=== PATIENT | male | born 1995 | race Caucasian/White ===

== ENCOUNTER 2020-11-27 19:18 | Emergency (ER) | payer OTHER, SELFPAY ==
[2020-11-27 19:31] VITALS: BP 148/61; PULSE 97; RESP 14; TEMP 36.9; O2SAT 99
[2020-11-27 19:38] VITALS: BP 148/61; PULSE 97; RESP 14; TEMP 36.9; O2SAT 99
--- NOTE | 2020-11-27 19:46 | ED.GENADULT ---
HPI - General Adult General Chief complaint: Ear Stated complaint: Nausea, Ear Pain Time Seen by Provider: 11/27/20 19:35 Source: patient and RN notes reviewed Mode of arrival: ambulatory Limitations: no limitations History of Present Illness HPI narrative: Patient presents today complaining of right ear pain x3 weeks with right upper tooth pain x1 week. Patient was in a telehealth visit for his right ear pain and started on Augmentin on 11/21. He did not start the Augmentin until 11/23/2020. States his ear pain and tooth pain has not improved. Denies fever, congestion, rhinorrhea, sore throat. He has been taking ibuprofen without relief and currently rates pain 09/22. States he is nauseated related to the Augmentin use. MD complaint: Dental pain, right ear pain Related Data Home Medications Medication Instructions Recorded Confirmed amoxicillin-pot clavulanate 1 tablet PO Q12H 11/27/20 11/27/20 omeprazole 40 mg PO DAILY 11/27/20 11/27/20 Allergies Allergy/AdvReac Type Severity Reaction Status Date / Time acetaminophen Allergy Intermediate Swelling Verified 11/27/20 19:28 Review of Systems Review of Systems: CONSTITUTIONAL: Denies body aches, fever, chills, or sweats. EYES: Denies visual changes, redness, or discharge. ENT: Denies rhinorrhea, congestion, sore throat. + Right ear pain, right upper dental pain CARDIOVASCULAR: Denies chest pain, palpitations, or edema. RESPIRATORY: Denies cough or dyspnea. GASTROINTESTINAL: Denies abdominal pain, nausea, vomiting, or diarrhea. GENITOURINARY: Denies dysuria or hematuria. SKIN: Denies rash, itching, or wounds. MUSCULOSKELETAL: Denies back pain, joint pain, or myalgia. NEUROLOGIC: Denies headache, numbness, tingling, or weakness. PSYCH: Denies depression or anxiety. [facility] Past Medical History Medical History (Updated 11/27/20 @ 19:52 by Lu Larsen, [employer], ) GERD (gastroesophageal reflux disease) Comments At time of signature, I have reviewed and agree with nursing past medical, surgical, social and family history unless otherwise noted. Please see nursing chart for further information. There is no relevant family history pertinent to the presenting complaint Exam Narrative: GENERAL: Well-appearing, well-nourished, and in no acute distress. HEAD: Normocephalic, atraumatic. EYES: EOMI. No redness or drainage. Conjunctivae normal. ENT: Mucous membranes pink and moist. Nares clear. No rhinorrhea. TMs normal bilaterally. Throat normal. Uvula midline. Tooth #4 is broken off and a posterior piece is missing. Tender to percussion. Gumline is normal with no obvious periapical abscess. NECK: Normal AROM. Supple. No lymphadenopathy. CHEST: No respiratory distress. EXTREMITIES: Normal range of motion. No edema. SKIN: Warm, dry, no rash. Capillary refill normal. Normal skin turgor. NEURO: No focal deficits. Alert and oriented x3. Gait steady. PSYCH: Normal affect. No signs of depression or anxiety. Course Course Emergency Course: Patient's ear pain is likely referred pain from his fracture tooth. Tooth is likely painful due to an exposed nerve. Discussed follow-up dentist as soon as possible. Patient states he was having trouble with his dental insurance this week and will try to follow up next week. Vital Signs Vital signs: Vital Signs Temperature 98.5 F 11/27/20 19:31 Pulse Rate 97 11/27/20 19:31 Respiratory Rate 14 11/27/20 19:31 Blood Pressure 148/61 H 11/27/20 19:31 Pulse Oximetry 99 11/27/20 19:31 Temperature 98.5 F 11/27/20 19:38 Pulse Rate 97 11/27/20 19:38 Respiratory Rate 14 11/27/20 19:38 Blood Pressure 148/61 H 11/27/20 19:38 Pulse Oximetry 99 11/27/20 19:38 Reviewed. Pt has been instructed to follow up with his PCP regarding his elevated blood pressure today. Medical Decision Making Differential Diagnosis Differential Diagnosis: AOM, otitis externa, ruptured TM, periapical abscess, tooth fracture
== END 2020-11-27 19:54 | disposition home or self-care (01) ==
PROVIDERS: Emergency Provider Nurse Practitioner; PCP Family Medicine Sports Medicine
DX: S02.5XXA Fracture of tooth (traumatic), initial encounter for closed fracture (principal); X58.XXXA Exposure to other specified factors, initial encounter; K21.9 Gastro-esophageal reflux disease without esophagitis
CPT/HCPCS: 99213; G0463

== ENCOUNTER 2021-04-11 23:45 | Emergency (ER) | payer OTHER, SELFPAY ==
--- NOTE | ~2021-04-11 | XR_ITS ---
EXAMINATION: XR chest 2V 04/12/2021 00:21 INDICATION: Chest pain PROCEDURE: 2 view chest COMPARISON: No prior studies for comparison. FINDINGS: The lungs are clear. The cardiomediastinal silhouette is within normal limits. There are no pleural effusions. There is no pneumothorax suspected. IMPRESSION: 1: NO ACUTE CARDIOPULMONARY DISEASE. Reviewed, dictated and finalized at location A. [employer] MACHINE OPERATOR
[2021-04-11 23:48] VITALS: PULSE 95; RESP 18; O2SAT 100
[2021-04-11 23:54] VITALS: PULSE 85
--- NOTE | 2021-04-12 00:05 | ECG_ITS ---
Measurements Intervals [place] Rate: 88 P: 72 [place]: 159 QRS: 81 QRSD: 92 T: 56 QT: 316 QTc: 384 Interpretive Statements SINUS RHYTHM WITH SINUS ARRHYTHMIA MINIMAL Q WAVES- ANTEROLAT/INF LEADS BORDERLINE ECG Electronically Signed On 04-12-2021 6:26:34 CIRCULAR CLERK by Fazal Pena D.O.
--- NOTE | 2021-04-12 00:06 | ED.CHESTPAIN ---
HPI - Chest Pain General Chief Complaint: Chest Pain Stated Complaint: Chest pain, n/v Time Seen by Provider: 04/11/21 23:56 Source: patient Mode of arrival: ambulatory Limitations: no limitations History of Present Illness HPI narrative: This is a 25 year old male who presents for evaluation of left anterior chest pain. This pain started 7 days ago on monday night. He describes left anterior chest pain that radiates to left shoulder, and his pain has been constant. He admits to drinking 8 beers on Monday but denies any other possible causes of his pain. He also developed nausea, vomiting, and weakness on and Monday night. His nausea and vomiting have resolved. He also denies fever, chills, cough, shortness of breath or abdominal pain. He states his pain has not gotten worse, and he is unsure of any exacerbating factors. He took a rapid covid test yesterday and it was negative.He came to ER today because his chest pain has been constant. Related Data Home Medications Medication Instructions Recorded Confirmed omeprazole 40 mg PO DAILY 11/27/20 11/27/20 Allergies Allergy/AdvReac Type Severity Reaction Status Date / Time acetaminophen Allergy Intermediate Swelling Verified 04/11/21 23:56 Review of Systems Review of Systems: All systems reviewed & are unremarkable except as noted in HPI and below PMFSH Past Medical History Medical History (Updated 04/12/21 @ 02:49 by Nancy Montes MD) GERD (gastroesophageal reflux disease) Surgical History Surgical History (Updated 04/12/21 @ 00:10 by Nancy Montes MD) No pertinent past surgical history Social History Social History (Updated 04/12/21 @ 00:10 by Nancy Montes MD) Smoking status: Current every day smoker Additional smoking assessment comments: smokes 1 pack per week Alcohol intake: current Exam Const: General: no acute distress and alert Orientation/consciousness: patient oriented x3 Eyes: EOM: EOMs intact bilaterally Resp: Effort & Inspection: normal respiratory effort and no retractions Auscultation: clear to auscultation bilaterally Cardio: Rate: regular rate Rhythm: regular rhythm Heart sounds: no murmurs GI: GI Palp: Yes Soft to palpation, No Tenderness to palpation present (GI) and No Guarding due to palpation present (GI) Auscultation: normal bowel sounds Skin: General skin exam: normal color Rashes: no rashes Neuro: General: patient oriented x3, moves all extremities and CN's II-XI intact bilaterally Extrem: General: normal to inspection Psych: Mental Status: mental status grossly normal Affect: normal affect Course Reevaluation(s) Reevaluation #1: PAtient reports pain has improved. I discussed with patient no significant abnormalities found. potassium is mildly decreased. Date: 04/12/21 Time: 02:47 Vital Signs Vital signs: Vital Signs Pulse Rate 95 04/11/21 23:48 Respiratory Rate 18 04/11/21 23:48 Pulse Oximetry 100 04/11/21 23:48 Pulse Rate 77 04/12/21 03:09 Respiratory Rate 20 04/12/21 03:09 Blood Pressure 114/72 04/12/21 03:09 Pulse Oximetry 100 04/12/21 03:09 MDM - Chest Pain Lab Data Attestation: I reviewed the patient's lab results. Result diagrams: 04/12/21 00:08 04/12/21 00:09 Labs: Lab Results 04/12/21 04/12/21 04/12/21 Range/Units 00:08 00:08 00:09 WBC 8.7 (4.5-10.0) K/mm3 RBC 5.38 (4.6-6.20) M/mm3 Hgb 16.4 (14.0-18.0) g/dL Hct 48.1 (42.0-52.0) % MCV 89.4 (80-100) fl MCH 30.5 (26-34) pg MCHC 34.1 (32-36) g/dl RDW 12.3 (11.5-14.5) % Plt Count 211 (150-375) k/mm3 MPV 10.2 (7.4-10.4) fl Immature Gran % (Auto) 0.3 (0-0.5) % Neut % (Auto) 51.4 (45.5-73.1) % Lymph % (Auto) 33.8 (18.3-44.2) % Wilcox % (Auto) 11.1 H (2.6-8.5) % Eos % (Auto) 2.9 (0-4.4) % Baso % (Auto) 0.5 (0.2-1.2) % Lymph # (Auto) 2.95 (0.9-3.2) K/mm3
[2021-04-12] MEDS: KETOROLAC 30 MG/ML VIAL (*BKC) IV PUSH (00:11)
[2021-04-12] MEDS: PANTOPRAZOLE SODIUM IV 40 MG VIAL IV PUSH (00:11)
[2021-04-12] MEDS: SODIUM CHLORIDE 0.9% IV 1,000 ML 999 ML IV CONT (00:12)
[2021-04-12 00:13] LABS: Basophils Percent Auto 0.5 % (0.2-1.2); Eosinophils Absolute Auto 0.3 K/mm3 (0-0.3); Eosinophils Percent Auto 2.9 % (0-4.4); Hematocrit 48.1 % (42.0-52.0); Hemoglobin 16.4 g/dL (14.0-18.0); Immature Granulocyte Absolute 0.03 K/mm3 (0.00-0.031); Immature Granulocyte Percent A 0.3 % (0-0.5); Lymphocytes Absolute Auto 2.95 K/mm3 (0.9-3.2); Lymphocytes Percent Auto 33.8 % (18.3-44.2); Mean Corpuscular HGB Conc 34.1 g/dl (32-36); Mean Corpuscular Hemoglobin 30.5 pg (26-34); Mean Corpuscular Volume 89.4 fl (80-100); Mean Platelet Volume 10.2 fl (7.4-10.4); Monocytes Percent Auto 11.1 % (2.6-8.5); Neutrophils Absolute Auto 4.5 K/mm3 (1.3-6.7); Neutrophils Percent Auto 51.4 % (45.5-73.1); Platelet Count Result 211 k/mm3 (150-375); Red Blood Count 5.38 M/mm3 (4.6-6.20); Red Cell Distribution Width 12.3 % (11.5-14.5); White Blood Count 8.7 K/mm3 (4.5-10.0)
[2021-04-12 00:24] LABS: Prothrombin Time 12.7 Seconds (11.1-14.7)
[2021-04-12 00:25] LABS: Partial Thromboplastin Time 28.5 SECONDS (22.3-36.8)
[2021-04-12 00:27] LABS: D Dimer 0.38 ug/mL (<0.48)
[2021-04-12 00:27] LABS: Alanine Aminotransferase 19 U/L (4-50); Albumin Level 4.6 g/dL (3.5-5.1); Alkaline Phosphatase 57 U/L (38-126); Anion Gap 9 mmol/L (8-16); Aspartate Amino Transferase 26 U/L (17-59); Bilirubin,Total 0.4 mg/dL (0.2-1.3); Blood Urea Nitrogen 14 mg/dL (9-20); Calcium 8.6 mg/dL (8.4-10.2); Carbon Dioxide 28 mmol/L (22-30); Chloride 104 mmol/L (98-107); Estimated CRCL calculation 107 ml/min; Estimated Glomerular Filt Rate > 60; Glucose 79 mg/dL (65-110); Lipase 155 U/L (23-300); Potassium 3.3 mmol/L (3.4-5.0); Sodium 141 mmol/L (137-145)
[2021-04-12 00:39] LABS: Troponin I < 0.012 ng/mL (0.000-0.034)
[2021-04-12 01:12] VITALS: BP 103/76; PULSE 84; RESP 14; O2SAT 100
[2021-04-12] MEDS: ONDANSETRON INJ 4 MG/2 ML VIAL IV PUSH (02:12)
[2021-04-12 03:09] VITALS: BP 114/72; PULSE 77; RESP 20; O2SAT 100
== END 2021-04-12 03:09 | disposition home or self-care (01) ==
PROVIDERS: Emergency Provider General Practice; PCP Family Medicine Sports Medicine
DX: R07.89 Other chest pain (principal); K21.9 Gastro-esophageal reflux disease without esophagitis; F17.210 Nicotine dependence, cigarettes, uncomplicated; R94.31 Abnormal electrocardiogram [ECG] [EKG]
CPT/HCPCS: 36415; 71046; 80053; 83690; 84484; 85025; 85380; 85610; 85730; 93005; 96361; 96374; 96375; 99284; C9113; J1885; J2405; J7030

== ENCOUNTER 2024-01-18 16:21 | Emergency (ER) | payer SELFPAY ==
--- NOTE | 2024-01-18 16:24 | ED_ITS ---
HPI - Male Genitourinary General Chief complaint: Urogenital-Male Stated complaint: burning while urinating Time Seen by Provider: 01/18/24 16:24 Source: patient Mode of arrival: ambulatory Limitations: no limitations History of Present Illness HPI Narrative: Jeffrey is a 28-year-old male patient presenting to the clinic today with complaints of 2 weeks of burning with urination. He denies any penile discharge. States he got a text 3 days ago from a sexual partner that tested positive for chlamydia. He denies any fevers, body aches, back pain, testicle pain, or lower abdominal pain. Related Data Home Medications Medication Instructions Recorded Confirmed omeprazole 40 mg capsule,delayed 40 mg PO DAILY 11/27/20 01/18/24 release escitalopram oxalate 10 mg tablet 10 mg PO DAILY 01/18/24 01/18/24 Allergies Allergy/AdvReac Type Severity Reaction Status Date / Time acetaminophen Allergy Intermediate Swelling Verified 01/18/24 16:23 Review of Systems Review of Systems: Pertinent positives per HPI. Patient denies any fever, chills, rash, headache, visual changes, dizziness, cough, runny nose, sore throat, shortness of breath, chest pain, palpitations, nausea, vomiting, diarrhea, constipation, abdominal pain, or any urinary issues. PMFSH Past Medical History Medical History GERD (gastroesophageal reflux disease) Surgical History Surgical History No pertinent past surgical history Social History Social History Smoking status: Current every day smoker Additional smoking assessment comments: smokes 1 pack per week Alcohol intake: current Comments At the time of my signature, I reviewed and agree with the nursing past medical, surgical, social, and family history. There is no relevant family history pertinent to the patient complaint. Exam Narrative: General: Well-developed, well nourished, in no apparent distress. Head: Normocephalic, atraumatic. Cardio: Regular rate and rhythm, s1 and s2 normal, no murmur appreciated. Resp: Clear to auscultation bilaterally, no rhonchi, rales, wheezing or rubs. Abdomen: Soft, pliable, bowel sounds present in all quadrants, non-tender to palpation, no organomegly, no CVAT tenderness. : Deferred Course Course Emergency Course: Portions of this record may have been created with voice recognition software. Level of Care: Express Care Visit Vital Signs Vital signs: Vital Signs Temperature 36.6 C 01/18/24 16:32 Pulse Rate 82 01/18/24 16:32 Respiratory Rate 16 01/18/24 16:32 Blood Pressure 137/79 01/18/24 16:32 Pulse Oximetry 100 01/18/24 16:32 Oxygen Delivery Room Air 01/18/24 16:32 Temperature 36.6 C 01/18/24 16:32 Pulse Rate 82 01/18/24 16:32 Respiratory Rate 16 01/18/24 16:32 Blood Pressure 137/79 01/18/24 16:32 Pulse Oximetry 100 01/18/24 16:32 Oxygen Delivery Room Air 01/18/24 16:32 Vital signs reviewed MDM - Male Genitourinary MDM Narrative Medical decision making narrative: At the time of visit patient is resting comfortably on the exam table. Patient appears to be nontoxic. Labs: Urinalysis shows 1+ protein and uro bili but no sign of infection. We will send urine for gonorrhea, chlamydia, and Trichomonas testing Plan: We will cover patient for chlamydia as he has had direct exposure and he is having dysuria. Prescription for doxycycline was sent to the pharmacy. Supportive measures were discussed with the patient and they voiced understanding discharge instructions and agrees to treatment plan. Return precautions reviewed Differential Diagnosis Differential diagnosis: Likely urinary tract infection, priapism, urethritis, epididymitis, prostatitis and other (STI) Discharge Plan Discharge Clinical Impression: Chlamydia contact, Dysuria Patient Disposition: Home, Self-Care Condition: Stable Instructions: Antibiotic Form, Chlamydia (ED), Dysuria (ED) Additional Instructions: Urinalysis shows 1+ protein but no sign of urinary tract infection Will cover you for chlamydia as you have had that exposure Take doxycycline as prescribed We have tested/treated you for STIs in the clinic today. Avoid any sexual activity- includes oral, anal, or vaginal intercourse until you get results back and have completed any additional recommended treatment regimens. We will contact you if testing is positive and make sure your treatment was appropriate for the type of STI. If symptoms worsen after treatment recommend reevaluation with your PCP or Express care. Prescriptions: New doxycycline monohydrate 100 mg capsule 100 mg PO BID 7 Days Qty: 14 0RF No Action omeprazole 40 mg capsule,delayed release(DR/EC) 40 mg PO DAILY escitalopram oxalate 10 mg tablet 10 mg PO DAILY ondansetron 4 mg tablet,disintegrating 4 mg PO Q6H PRN (Reason: nausea and vomiting) Qty: 10 0RF ibuprofen 600 mg tablet 600 mg PO Q6H PRN (Reason: pain) Qty: 14 0RF Follow-up/Referrals: PHYSICIAN,SMOKEHOUSE WORKER [Primary Care Provider] - Time of Disposition: 16:43 Quality NIHSS Nursing Documentation ED NIHSS nursing documentation: reviewed/agree
[2024-01-18 16:32] VITALS: BP 137/79; PULSE 82; RESP 16; TEMP 36.6; O2SAT 100
[2024-01-18 16:49] LABS: EDUAAPPEAR Clear; EDUABILI Negative (Negative); EDUABLOOD Negative (Negative); EDUACOLOR1 Yellow; EDUAGLUCOSE Negative (Negative); EDUAKETONE Negative (Negative); EDUALEUKO Negative (Negative); EDUANITRATE Negative (Negative); EDUAPH 8.5; EDUAPROTEIN 1+ (Negative); EDUASPGRAVITY 1.015
[2024-01-18 21:13] LABS: Trichomonas Vag PCR NOT DETECTED (NOT DETECTE)
[2024-01-18 21:36] LABS: Chlamydia trachomatis NOT DETECTED (NOT DETECTE); Neisseria gonorrhoeae PCR NOT DETECTED (NOT DETECTE)
== END 2024-01-18 16:49 | disposition home or self-care (01) ==
PROVIDERS: Emergency Provider Nurse Practitioner Family
DX: R30.0 Dysuria (principal); Z20.2 Contact with and (suspected) exposure to infections with a predominantly sexual mode of transmission; K21.9 Gastro-esophageal reflux disease without esophagitis; F17.200 Nicotine dependence, unspecified, uncomplicated
CPT/HCPCS: 81003; 87491; 87591; 87661; 99213; G0463

== ENCOUNTER 2024-04-16 12:49 | Emergency (ER) | payer SELFPAY ==
[2024-04-16 12:55] VITALS: BP 124/72; PULSE 97; RESP 16; TEMP 36.9; O2SAT 98
--- NOTE | 2024-04-16 13:18 | ED.URI ---
HPI - URI/Sore Throat General Chief Complaint: Upper Respiratory Infection Stated Complaint: sharp pain w/breath,weight on chest Time Seen by Provider: 04/16/24 13:18 Source: patient, RN notes reviewed and old records reviewed Mode of arrival: ambulatory Limitations: no limitations History of Present Illness HPI Narrative: 28-year-old male presents to the [facility] with a cough, chest discomfort with coughing and deep breathing since Monday, 3 days. Reports that he has also had a fevers high as 102.3. Denies any nausea or vomiting. Has taken Advil called in flu. Reports exposure to influenza B Onset (ago): day(s) (3) Treatments prior to arrival: cold medicine Related Data Home Medications ?Medication ?Instructions ?Recorded ?Confirmed ?Last Taken ?Type escitalopram oxalate 10 mg tablet 10 mg PO DAILY 01/18/24 01/18/24 Unknown History Allergies Allergy/AdvReac Type Severity Reaction Status Date / Time acetaminophen Allergy Intermediate Swelling Verified 04/16/24 12:52 Review of Systems Review of Systems: All systems reviewed & are unremarkable except as noted in HPI and below Constitutional: Constitutional: Reports no additional constitutional complaints ENT: Reports system reviewed and no additional complaints, except as documented Cardiovascular: Cardiovascular: Reports no additional cardiovascular complaints, Denies chest pain and Denies dyspnea Respiratory: Respiratory: Reports as per HPI, Denies chest congestion, Reports cough, Reports pain with cough and Denies dyspnea Musculoskeletal: Musculoskeletal: Reports no additional musculoskeletal complaints Integumentary/Breasts: Skin/Breast: Reports system reviewed and no additional complaints, except as docu PMFSH Past Medical History Medical History GERD (gastroesophageal reflux disease) Surgical History Surgical History No pertinent past surgical history Social History Social History Smoking status: Current every day smoker Additional smoking assessment comments: smokes 1 pack per week Alcohol intake: current Comments At the time of my signature, I reviewed and agree with the nursing past medical, surgical, social, and family history. There is no relevant family history pertinent to the patient complaint. Exam Const: General: cooperative, healthy appearing, comfortable, no acute distress, well developed, alert and well nourished Nutritional Appearance: well nourished Orientation/consciousness: patient oriented x3 Limitations: no limitations HENMT: Head: normal to inspection Ears: hearing grossly normal bilaterally, external ears normal, TM's normal bilaterally, EAC's normal, mastoids normal and no periauricular adenopathy Face/Nose/Sinus: Normal external nose present and Normal nares present Face and sinus: normal facial exam and face symmetric Mouth: Yes Normal oral and palatal mucosa present, Yes lip normal, Yes tongue normal and Yes moist mucous membranes Throat: posterior oropharynx normal, uvula midline and no uvular edema Eyes: General: appearance normal, both eyes and all related structures Alignment and Position: alignment normal Neck: Neck: normal visual inspection, full ROM, no lymphadenopathy and no meningeal signs Chest: Chest palpation & inspection: normal inspection of the chest Resp: Effort & Inspection: normal respiratory effort and able to speak in complete sentences Auscultation: clear to auscultation bilaterally, no crackles, no rales, no rhonchi and no wheezes Cardio: Rate: regular rate Skin: General skin exam: normal color and no rashes or lesions noted Neuro: General: patient oriented x3, gait normal, moves all extremities and no meningeal signs Cognition (Neuro): normal cognition Speech: normal speech Gait exam (Neuro): Normal gait present Extrem: General: normal to inspection, full ROM, capillary refill normal and normal gait Psych: Appearance: grossly normal and well kempt Mental Status: mental status grossly normal Speech and movement: Normal speech and movement present and Clear speech present Affect: normal affect Attitude: cooperative Course Course Level of Care: Express Care Visit Vital Signs Vital signs: Vital Signs Temperature 98.4 F 04/16/24 12:55 Pulse Rate 97 04/16/24 12:55 Respiratory Rate 16 04/16/24 12:55 Blood Pressure 124/72 04/16/24 12:55 Pulse Oximetry 98 04/16/24 12:55 Oxygen Delivery Room Air 04/16/24 12:55 Temperature 98.4 F 04/16/24 12:55 Pulse Rate 97 04/16/24 12:55 Respiratory Rate 16 04/16/24 12:55 Blood Pressure 124/72 04/16/24 12:55 Pulse Oximetry 98 04/16/24 12:55 Oxygen Delivery Room Air 04/16/24 12:55 Reviewed MDM - URI/Sore Throat MDM Narrative Medical decision making narrative: Patient sitting comfortably in exam room. Nontoxic, vitals stable. Patient in no acute distress. Patient reports a cough, no acute findings on exam. Patient exposure flu B which he is also positive for. Patient is appropriate for outpatient treatment with close follow-up Discharge instructions reviewed with patient, as well as provided in writing per nursing staff. The instructions also include specific and strict return/GO TO THE ER as well as f/u information. All questions have been answered, and the patient deny any further questions with discharge and discharge plan. Some parts of this dictation were generated by voice recognition software and may contain typographical and/or grammatical inaccuracies. Differential Diagnosis Differential diagnosis: Likely upper respiratory infection, otitis media, sinusitis, viral infection, bronchitis, influenza and pharyngitis Lab Data Labs: Lab Results 04/16/24 Range/Units 13:25 POC Influenza A Ag Negative (Negative) POC Influenza B Ag Positive (Negative) POC SARS CoV-2 Ag Negative (Negative) Reviewed Critical Care Time Critical Care Time Critical Care Time: No Discharge Plan Discharge Clinical Impression: Influenza B Patient Disposition: Home, Self-Care Condition: Stable Instructions: Antibiotic Form, Influenza (ED) Additional Instructions: Your rapid COVID test were negative Your rapid flu test was positive for influenza B Your symptoms are due to a viral illness, which is not treated with antibiotics. Typically viral infections last 7-10 days, can linger for couple of weeks. It is very important to treat your symptoms. Drink plenty of water, Gatorade, Pedialyte, ice pops or Jell-O. -take Motrin per package instructions. You can take 600 mg 3 times a day -Antihistamine medication such as Zyrtec/Claritin/Jeanie during the day can help improve symptoms. -doing daily nasal irrigations can help relieve pressure your sinuses. Things like a Neti pot -Use Flonase twice a day for 5 days then daily to help reduce the inflammation and dry up your sinuses. -You can also use Mucinex. Be sure to drink plenty of water with this medication at least 8 ounces with every dose and it is important to drink 8 to 10 glasses of water per day. Water is a natural decongestant -Eat and drink things that are easy to swallow, like tea or soup, or popsicles. -Oral rinses such as: Salt water gargles and/or may use topical anesthetic (eg. Chloraseptic spray) or lozenges to relieve dryness or throat pain). -Frequent hand washing or hand rn womens health is one of the best ways to prevent spread of infection. -Using a vaporizer or humidifier at night will also help thin secretions and help with coughing up phlegm. -Follow up with primary care provider in 7-10 days if condition is not improving - For new or worsening symptoms go directly to the nearest ER Patient Language: Nigerien Prescriptions: No Action escitalopram oxalate 10 mg tablet 10 mg PO DAILY Follow-up/Referrals: PHYSICIAN NOT ON STAFF,NONSTAFF [Primary Care Provider] - Stand Alone Forms: Work/School Release IP Time of Disposition: 13:44
[2024-04-16 13:44] LABS: EDCOVIDSCREEN Negative (Negative); EDINFLUASCREEN Negative (Negative); EDINFLUBSCREEN Positive (Negative)
== END 2024-04-16 13:50 | disposition home or self-care (01) ==
PROVIDERS: Emergency Provider Nurse Practitioner
DX: J10.1 Influenza due to other identified influenza virus with other respiratory manifestations (principal); K21.9 Gastro-esophageal reflux disease without esophagitis; F17.210 Nicotine dependence, cigarettes, uncomplicated; Z20.822 Contact with and (suspected) exposure to COVID-19
CPT/HCPCS: 87426; 87804; 99212; G0463